=== PATIENT | female | born 1955 | race Caucasian/White ===

== ENCOUNTER 2017-02-05 08:51 | Outpatient (CLI) | payer BC | END 2017-02-05 08:52 | disposition home or self-care (01) | LOC: BICMAMMO 08:51 | PROVIDERS: ATTEND Family Medicine | DX: Z12.31 Encounter for screening mammogram for malignant neoplasm of breast (principal) | CPT/HCPCS: 77063 ==

== ENCOUNTER 2018-03-04 08:16 | Outpatient (CLI) | payer BC ==
--- NOTE | 2018-03-04 09:34 | MMO ---
BILATERAL SCREENING MAMMOGRAM: DATE: 03/04/18 HISTORY: 62-year-old female for screening mammography. COMPARISON: 02/05/17, 12/17/15, 11/19/14. FINDINGS: Bilateral MLO and CC views of the breasts show scattered fibroglandular breast tissue. There is no ev idence of suspicious mass, suspicious cluster of microcalcifications, or area of architectural distor tion. Interpretation of this mammogram was performed with the assistance of computer-aided detection. IMPRESSION: BIRADS 1: Negative Annual screening mammography is recommended. POS: FELICIA
== END 2018-03-04 08:17 | disposition home or self-care (01) ==
LOC: SCSMAMMO 08:16
PROVIDERS: ATTEND Family Medicine
DX: Z12.31 Encounter for screening mammogram for malignant neoplasm of breast (principal)
CPT/HCPCS: 77067

== ENCOUNTER 2019-02-06 06:59 | Outpatient (CLI) | payer BC ==
--- NOTE | 2019-02-06 07:52 | ULT ---
Sonogram abdomen complete HISTORY: Upper abdomen pain. Palpable abnormality upper abdomen. FINDINGS: Nonshadowing biliary sludge evident within the dependent portion of the gallbladder lumen. No gallbladder wall thickening or pericholecystic fluid. Common duct is 0.3 cm. Liver is diffusely echogenic without focal mass or intrahepatic biliary dilatation. No free fluid. Th e spleen, kidneys, and visualized portions of abdominal aorta and IVC are unremarkable. Pancreas mostly obscured. Gas-filled bowel, likely transverse colon, distends the upper anterior abdomen. No underlying mass is evident. IMPRESSION: Biliary sludge, evidence of chronic gallbladder dyskinesis. No evidence of acute biliary obstruction or inflammation. No evidence of intra-abdominal mass in area of concern at the upper anterior abdomen.
== END 2019-02-06 07:00 | disposition home or self-care (01) ==
LOC: SCSULT 06:59
PROVIDERS: ATTEND Family Medicine
DX: R19.06 Epigastric swelling, mass or lump (principal); K82.8 Other specified diseases of gallbladder
CPT/HCPCS: 93975

== ENCOUNTER 2020-06-30 09:30 | Outpatient (CLI) | payer BC | END 2020-06-30 09:31 | disposition home or self-care (01) | LOC: BICMAMMO 09:30 | PROVIDERS: ATTEND Family Medicine | DX: Z12.31 Encounter for screening mammogram for malignant neoplasm of breast (principal); Z91.89 Other specified personal risk factors, not elsewhere classified | CPT/HCPCS: 77063; 77067 ==

== ENCOUNTER 2021-08-26 08:04 | Outpatient (CLI) | payer MEDICARE, BC | END 2021-08-26 08:05 | disposition home or self-care (01) | LOC: BICMAMMO 08:04 | PROVIDERS: ATTEND Family Medicine | DX: Z12.31 Encounter for screening mammogram for malignant neoplasm of breast (principal); M81.0 Age-related osteoporosis without current pathological fracture; Z91.89 Other specified personal risk factors, not elsewhere classified | CPT/HCPCS: 77063; 77067; 77080 ==

== ENCOUNTER 2022-09-21 14:56 | Outpatient (CLI) | payer MEDICARE, BC | END 2022-09-21 14:57 | disposition home or self-care (01) | LOC: BICMAMMO 14:56 | PROVIDERS: ATTEND Family Medicine | DX: Z12.31 Encounter for screening mammogram for malignant neoplasm of breast (principal); Z91.89 Other specified personal risk factors, not elsewhere classified | CPT/HCPCS: 77063; 77067 ==

== ENCOUNTER 2024-10-14 08:23 | Outpatient (CLI) | payer MEDICARE | END 2024-10-14 08:24 | disposition home or self-care (01) | LOC: BICMAMMO 08:23 | PROVIDERS: ATTEND Family Medicine | DX: Z12.31 Encounter for screening mammogram for malignant neoplasm of breast (principal); Z91.89 Other specified personal risk factors, not elsewhere classified | CPT/HCPCS: 77063; 77067 ==

== ENCOUNTER 2024-11-25 08:49 | Outpatient (CLI) | payer MEDICARE | END 2024-11-25 08:50 | disposition home or self-care (01) | LOC: SCSBT 08:49 | PROVIDERS: ATTEND Family Medicine | DX: M85.89 Other specified disorders of bone density and structure, multiple sites (principal) | CPT/HCPCS: 77080 ==